=== PATIENT | female | born 1970 | race Caucasian/White ===

== ENCOUNTER 2017-07-20 07:33 | Outpatient (CLI) | payer OTHER ==
[~2017-07-20] VITALS: Ht 160 cm; Wt 66.7 kg
== END 2017-07-20 07:50 | disposition home or self-care (01) ==
LOC: OFIC 805 07:33
DX: H60.8X3 Other otitis externa, bilateral (principal)

== ENCOUNTER 2017-07-20 09:04 | Outpatient (CLI) | payer OTHER | END 2017-07-20 09:09 | disposition home or self-care (01) | LOC: LAB 09:04 | DX: H60.92 Unspecified otitis externa, left ear (principal) ==

== ENCOUNTER 2017-07-23 08:19 | Outpatient (CLI) | payer OTHER ==
[~2017-07-23] VITALS: Ht 152.4 cm; Wt 66.7 kg
== END 2017-07-23 08:40 | disposition home or self-care (01) ==
LOC: OFIC 805 08:19
DX: H60.8X2 Other otitis externa, left ear (principal)